=== PATIENT | male | born 1945 | race Caucasian/White ===

== ENCOUNTER 2016-12-13 14:38 | Observation (INO) | payer OTHER, BC ==
[~2016-12-13] VITALS: Ht 175.3 cm; Wt 64.2 kg
[~2016-12-13 14:38] MED LIST: CALC600T34 PO; FEXO180 PO; FISH1000 PO; PANC5000 PO; PLAV75TA PO; PROT40TA PO; Q 10 PO; RANI150T PO; TAB-TAB PO
[2016-12-13 14:40] VITALS: BP 156/69; PULSE 67; RESP 15; TEMP 97.3; O2SAT 99
[2016-12-13 15:25] LABS: AUTOMATED NEUTROPHIL # 4.3 TH/MM3 (1.8-7.7); BASOPHIL % 0.4 % (0.0-2.0); EOSINOPHIL # 0.1 TH/MM3 (0-0.4); EOSINOPHIL % 1.3 % (0.0-4.0); HEMATOCRIT 32.1 % (39.0-51.0); HEMO FLAGS DIFF FINAL; LYMPH % 22.8 % (9.0-44.0); LYMPHOCYTE # 1.5 TH/MM3 (1.0-4.8); MEAN CELL VOLUME 93.1 FL (80.0-100.0); MEAN CORPUSCULAR HEMOGLOBIN 33.3 PG (27.0-34.0); MEAN CORPUSCULAR HGB CONC 35.7 % (32.0-36.0); MONO % 11.1 % (0.0-8.0); NEUT % 64.4 % (16.0-70.0); PLATELET COUNT 171 TH/MM3 (150-450); RED BLOOD COUNT 3.44 MIL/MM3 (4.50-5.90); RED CELL DISTRIBUTION WIDTH 12.6 % (11.6-17.2); WHITE BLOOD COUNT 6.6 TH/MM3 (4.0-11.0)
[2016-12-13] MEDS ORDERED: PANTOPRAZOLE SODIUM 40 MG VIAL IV PUSH ONE (15:30)
--- NOTE | 2016-12-13 15:37 | PD ---
HPI Chief Complaint: GI Complaint Time Seen by Provider: 15:20 Travel History International Travel<30 days: No Contact w/Intl Traveler<30days: No Traveled to known affect area: No History of Present Illness HPI 71-year-old male complains of rectal bleeding. Patient noticed maroon and black stool since yesterday. Patient has history of CAD status post stents placement on Plavix and aspirin daily. Patient states that he has some abdominal bloating with rectal bleeding since yesterday. Patient denies any headache. Patient denies any chest pain. Patient states that he has mild intermittent shortness of breath. Patient denies any fever chills. Patient denies any nausea vomiting diarrhea. Patient states that he has history of GI bleed last year. Patient has been a patient of Dr. Roa, superintendent maintenance airports and Dr. Chanel, Sheet Metal Technician. Patient has history of CAD status post stents placement 6, GERD, dyslipidemia, hypertension. PFSH Past Medical History Anemia: Yes Arthritis: No Asthma: No Blood Disorders: No Anxiety: No Depression: No Heart Rhythm Problems: No Cancer: No Cardiac Catheterization: Yes Cardiovascular Problems: Yes High Cholesterol: Yes Chemotherapy: No Chest Pain: Yes Congestive Heart Failure: No COPD: No Cerebrovascular Accident: No Diminished Hearing: No GERD: No Genitourinary: No Headaches: No Hiatal Hernia: No Hypertension: Yes Inguinal Hernia: Yes Medical other: No (vitalago/ pale) Musculoskeletal: No Neurologic: No Psychiatric: No Respiratory: No Myocardial Infarction: No Radiation Therapy: No Seizures: No Sleep Apnea: Yes (non compliant cpap) Ulcer: No Influenza Vaccination: Yes Past Surgical History Abdominal Surgery: No (GALLBLADDER REMOVAL) AICD: No Cardiac Surgery: Yes (2 STENTS PLACED IN 2005) Cholecystectomy: Yes (FEBRUARY 2007) Coronary Stent: Yes (6) Ear Surgery: No Endocrine Surgery: No Eye Surgery: Yes (cataracts) Genitourinary Surgery: No Gynecologic Surgery: No Joint Replacement: No Oral Surgery: No Pacemaker: No Thoracic Surgery: No Social History Alcohol Use: No Tobacco Use: No Substance Use: No Allergies-Medications (Allergen,Severity, Reaction): Coded Allergies: Aspirin (Verified Allergy, Severe, CHEST PAIN, 12/13/16) Zocor (Verified Allergy, Severe, ELEVATED LFT'S, 12/13/16) ALL STATINS Chocolate (Verified Allergy, Mild, HIVES, 12/13/16) Lactose (Verified Allergy, Mild, ABD CRAMPING, 12/13/16) Uncoded Allergies: ginko (Allergy, Mild, 03/13/06) Reported Meds & Prescriptions Reported Meds & Active Scripts Active Reported Probiotic (Lactobacillus Acidophilus) 1 Cap Cap 1 Cap PO DAILY Ranexa ER 12 HR (Ranolazine) 500 Mg Tab 500 Mg PO DAILY Nitrostat SL (Nitroglycerin) 0.4 Mg Subl 0.4 Mg SL DIRECTED PRN 1 tablet under the tongue as needed for chest pain. Repeat every 5 minutes for a total of 3 DOSES or call 911 if NO relief. Atorvastatin (Atorvastatin Calcium) 80 Mg Tab 80 Mg PO HS Ranitidine (Ranitidine HCl) 150 Mg Cap 150 Mg PO BID Creon (Amylase/Lipase/Protease) 12,000-38,000-60,000 Units Cap 1 Cap PO TIDPC Multiple Vitamin 1 Tab 1 Tab PO DAILY Plavix (Clopidogrel Bisulfate) 75 Mg Tab 75 Mg PO DAILY Calcium 600 with Vitamin D (Calcium Carbonate-Cholecalciferol) 600-400 mg-Unit Tab 1 Tab PO DAILY Review of Systems General / Constitutional: No: Fever Eyes: No: Visual changes HENT: No: Headaches Cardiovascular: No: Chest Pain or Discomfort Respiratory: No: Shortness of Breath Gastrointestinal: Positive: Hematochezia, No: Abdominal Pain Genitourinary: No: Dysuria Musculoskeletal: No: Pain Skin: No Rash Neurologic: No: Weakness Psychiatric: No: Depression Endocrine: No: Polydipsia Hematologic/Lymphatic: No: Easy Bruising Physical Exam Narrative GENERAL: Well-nourished, well-developed patient. SKIN: Warm and dry. HEAD: Normocephalic. EYES: No scleral icterus. No injection or drainage. NECK: Supple, trachea midline. No JVD or lymphadenopathy. CARDIOVASCULAR: Regular rate and rhythm without murmurs, gallops, or rubs. RESPIRATORY: Breath sounds equal bilaterally. No accessory muscle use. GASTROINTESTINAL: Abdomen soft, non-tender, nondistended. Rectal exam patient has maroon-looking stool per rectum. No active bleeding per rectum. Hemoccult positive. MUSCULOSKELETAL: No cyanosis, or edema. BACK: Nontender without obvious deformity. No CVA tenderness. No large exam normal. Data Data Last Documented VS Vital Signs Date Time Temp Pulse Resp B/P Pulse Ox O2 Delivery O2 Flow Rate FiO2 12/13/16 14:40 97.3 67 15 156/69 99 Orders Complete Blood Count With Diff (12/13/16 14:44) Comprehensive Metabolic Panel (12/13/16 14:44) Prothrombin Time / Inr (Pt) (12/13/16 14:44) Act Partial Throm Time (Ptt) (12/13/16 14:44) Type And Screen (12/13/16 14:44) Sodium Chlor 0.9% 1000 Ml Inj (Ns 1000 M (12/13/16 15:30) Pantoprazole Inj (Protonix Inj) (12/13/16 15:30) Labs Laboratory Tests Test 12/13/16 14:55 White Blood Count 6.6 TH/MM3 Red Blood Count 3.44 MIL/MM3 Hemoglobin 11.5 GM/DL Hematocrit 32.1 % Mean Corpuscular Volume 93.1 FL Mean Corpuscular Hemoglobin 33.3 PG Mean Corpuscular Hemoglobin 35.7 % Concent Red Cell Distribution Width 12.6 % Platelet Count 171 TH/MM3 Mean Platelet Volume 9.5 FL Neutrophils (%) (Auto) 64.4 % Lymphocytes (%) (Auto) 22.8 % Monocytes (%) (Auto) 11.1 % Eosinophils (%) (Auto) 1.3 % Basophils (%) (Auto) 0.4 % Neutrophils # (Auto) 4.3 TH/MM3 Lymphocytes # (Auto) 1.5 TH/MM3 Monocytes # (Auto) 0.7 TH/MM3 Eosinophils # (Auto) 0.1 TH/MM3 Basophils # (Auto) 0.0 TH/MM3 CBC Comment DIFF FINAL Differential Comment Prothrombin Time 11.2 SEC Prothromb Time International 1.0 RATIO Ratio Activated Partial 26.4 SEC Thromboplast Time Sodium Level 139 MEQ/L Potassium Level 3.9 MEQ/L Chloride Level 104 MEQ/L Carbon Dioxide Level 28.9 MEQ/L Anion Gap 6 MEQ/L Blood Urea Nitrogen 22 MG/DL Creatinine 1.07 MG/DL Estimat Glomerular Filtration 68 ML/MIN Rate Random Glucose 90 MG/DL Calcium Level 8.8 MG/DL Total Bilirubin 0.3 MG/DL Aspartate Amino Transf 35 U/L (AST/SGOT) Alanine Aminotransferase 38 U/L (ALT/SGPT) Alkaline Phosphatase 90 U/L Total Protein 6.7 GM/DL Albumin 3.5 GM/DL Blood Type O POSITIVE Antibody Screen NEGATIVE MDM Medical Decision Making Medical Screen Exam Complete: Yes Emergency Medical Condition: Yes Differential Diagnosis Differential diagnosis including upper versus lower GI bleed, diverticulosis, diverticulitis, AV malformation, hemorrhoidal bleed, coagulopathy. Narrative Course 71-year-old male with rectal bleeding. Patient has history of CAD status post stent placement and is on Plavix and aspirin. Normal saline solution 100 cc an hour. Protonix 40 mg IV. Lobito Coleman MD Dec 13, 2016 15:37
[2016-12-13 15:38] LABS: APTT (PATIENT) 26.4 SEC (24.3-30.1); PROTHROMBIN TIME - PATIENT 11.2 SEC (9.8-11.6)
[2016-12-13] MEDS ORDERED: NITR0.4S SL (15:38)
[2016-12-13] MEDS ORDERED: MULTTAB67 PO (15:38)
[2016-12-13] MEDS ORDERED: RANI150C PO (15:38)
[2016-12-13] MEDS ORDERED: ATOR1TAB18 PO (15:38)
[2016-12-13] MEDS ORDERED: RANO500 PO (15:38)
[2016-12-13] MEDS ORDERED: CREON12 PO (15:38)
[2016-12-13] MEDS ORDERED: CALC1TAB87 PO (15:38)
[2016-12-13] MEDS ORDERED: PLAV75TA29 PO (15:38)
[2016-12-13] MEDS ORDERED: LACTCAP8 PO (15:39)
[2016-12-13 15:49] LABS: ALT (GPT) 38 U/L (12-78); ANION GAP 6 MEQ/L (5-15); AST (GOT) 35 U/L (15-37); BICARBONATE 28.9 MEQ/L (21.0-32.0); BLOOD UREA NITROGEN 22 MG/DL (7-18); CHLORIDE 104 MEQ/L (98-107); GLOMERULAR FILTRATION RATE 68 ML/MIN (>89); POTASSIUM 3.9 MEQ/L (3.5-5.1); SODIUM (NA) 139 MEQ/L (136-145)
[2016-12-13 15:51] LABS: ALKALINE PHOSPHATASE 90 U/L (45-117); TOTAL BILIRUBIN ADULT 0.3 MG/DL (0.2-1.0)
[2016-12-13] MEDS: SODIUM CHLOR 0.9% 1000 ML INJ 1,000 ML IV SCH ×3 (15:55→22:46)
[2016-12-13] MEDS ORDERED: ACETAMINOPHEN 325 MG TAB PO PRN (16:45)
[2016-12-13] MEDS ORDERED: MORPHINE SULFATE 4 MG/ML INJ IV PRN (16:45)
[2016-12-13] MEDS ORDERED: ONDANSETRON HCL 4 MG/2 ML VIAL IV PRN (16:45)
[2016-12-13] MEDS ORDERED: ACETAMINOPHEN/HYDROcodone 325 MG/5 MG TAB PO PRN (16:45)
[2016-12-13] MEDS ORDERED: SODIUM CHLORIDE 0.9% FLUSH 5 ML FLUSH IV PRN (16:45)
[2016-12-13] MEDS ORDERED: NALOXONE HCL 0.4 MG/ML AMP IV PRN (16:45)
--- NOTE | 2016-12-13 17:35 | HHI.HP ---
HPI Service [facility]ists Primary Care Physician [facility] Admission Diagnosis GI bleed. Diagnoses: Chief Complaint: Rectal bleeding ZEPEDA Fatigue Travel History International Travel<30 Days: No Contact w/Intl Traveler <30 Da: No Traveled to Known Affected Are: No History of Present Illness 71 yo male with PMHX of anemia, CAD s/p previous PCI/with 6 stent implantations on Plavix and ASA, HLD, Vitiligo, bradycardia, FLAVIA CPAP noncompliant, GERD, hemorrhoids and h/o previous GIB one year ago requiring a transfusion of 2u PRBCs presents to [facility] with complaints of rectal bleeding with associated fatigue x 2 days. He reports some exertional dyspnea that has been ongoing since his last cardiac stent placement in September. Patient has witnessed maroon and black stools as well as bright red blood. At the time of his GIB last year, patient underwent a colonoscopy by Dr. Roa which was negative per patient report and he was told to have repeat colonoscopy in 10 yrs. The patient states the bleeding is similar to what he experienced one year ago leading to his previous admission and transfusion. Patient denies any complaints of chest pain or abdominal pain. He does admit to some diarrhea with the bleeding but denies any fever or chills. In the ED, patients hemoglobin is 11.5 and hematocrit 32.1. Rectal exam done in ED revealed maroon looking stool per rectum and Hemoccult positive. ED physician Dr. Coleman discussed with patients efficiency miner Dr. Chanel who has stated patient is to remain on his home medications of Plavix and Aspirin at this time. Review of Systems Constitutional: COMPLAINS OF: Fatigue, DENIES: Fever, Chills Endocrine: DENIES: Polydipsia, Polyuria, Polyphagia Eyes: DENIES: Eye pain, Double Vision Ears, nose, mouth, throat: DENIES: Throat pain, Ear Pain, Odynophagia Respiratory: COMPLAINS OF: Shortness of breath (with exertion since his last cath/stent placement in September), DENIES: Cough, Wheezing Cardiovascular: DENIES: Chest pain, Syncope, PND Gastrointestinal: COMPLAINS OF: Black stools (as stated in HPI), Bloody stools , DENIES: Abdominal pain, Nausea, Vomiting Genitourinary: DENIES: Hematuria, Dysuria Musculoskeletal: DENIES: Joint pain, Muscle aches Integumentary: DENIES: Pruritus, Rash Hematologic/lymphatic: DENIES: Lymphadenopathy Neurologic: DENIES: Headache, Localized weakness, Paresthesias Psychiatric: COMPLAINS OF: Confusion, DENIES: Anxiety, Depression, Suicidal Ideation Past Family Social History Past Medical History CAD s/p stent implantation x 6 Vitiligo hx of GIB requiring blood transfusion HLD GERD Hemorrhoids Poor digestion with wt loss, placed on pancreatic enzymes Bradycardia FLAVIA CPAP noncompliant Anemia Past Surgical History Cholecystectomy PCI/stent implantation Cataract surgery Bilateral inguinal hernia repairs with mesh Reported Medications Probiotic (Lactobacillus Acidophilus) 1 Cap Cap 1 Cap PO DAILY Ranexa ER 12 HR (Ranolazine) 500 Mg Tab 500 Mg PO DAILY Nitrostat SL (Nitroglycerin) 0.4 Mg Subl 0.4 Mg SL DIRECTED PRN 1 tablet under the tongue as needed for chest pain. Repeat every 5 minutes for a total of 3 DOSES or call 911 if NO relief. Atorvastatin (Atorvastatin Calcium) 80 Mg Tab 80 Mg PO HS Ranitidine (Ranitidine HCl) 150 Mg Cap 150 Mg PO BID Creon (Amylase/Lipase/Protease) 12,000-38,000-60,000 Units Cap 1 Cap PO TIDPC Multiple Vitamin 1 Tab 1 Tab PO DAILY Plavix (Clopidogrel Bisulfate) 75 Mg Tab 75 Mg PO DAILY Calcium 600 with Vitamin D (Calcium Carbonate-Cholecalciferol) 600-400 mg-Unit Tab 1 Tab PO DAILY Allergies: Coded Allergies: Aspirin (Verified Allergy, Severe, CHEST PAIN, 12/13/16) Zocor (Verified Allergy, Severe, ELEVATED LFT'S, 12/13/16) ALL STATINS Chocolate (Verified Allergy, Mild, HIVES, 12/13/16) Lactose (Verified Allergy, Mild, ABD CRAMPING, 12/13/16) Uncoded Allergies: ginko (Allergy, Mild, 03/13/06) Family History CAD, both parents, father age 53 Mother, breast cancer, age 82 Denies any FMHX of colon cancer Social History Patient denies any tobacco, ETOH or illicit drug use (+)second hand smoke exposure Physical Exam Vital Signs Vital Signs Date Time Temp Pulse Resp B/P Pulse Ox O2 Delivery O2 Flow Rate FiO2 12/13/16 14:40 97.3 67 15 156/69 99 Physical Exam GENERAL: This is a well-nourished, well-developed patient, in no apparent distress. Very pale skin. SKIN: No rashes, ecchymoses or lesions. Cool and dry. HEAD: Atraumatic. Normocephalic. No temporal or scalp tenderness. EYES: Pupils equal round and reactive. Extraocular motions intact. No scleral icterus. No injection or drainage. Slightly pale conjunctiva noted. ENT: Nose without bleeding, purulent drainage or septal hematoma. Throat without erythema, tonsillar hypertrophy or exudate. Uvula midline. Airway patent. NECK: Trachea midline. No lymphadenopathy. Supple, nontender, no meningeal signs. CARDIOVASCULAR: Regular rate and rhythm without murmurs or rubs. Possible S4 heart sound appreciated. RESPIRATORY: Clear to auscultation. Breath sounds equal bilaterally. No wheezes , rales, or rhonchi. GASTROINTESTINAL: Abdomen soft, non-tender, nondistended. No hepato-splenomegaly , or palpable masses. No guarding. MUSCULOSKELETAL: Extremities without clubbing, cyanosis, or edema. No joint tenderness, effusion, or edema noted. No calf tenderness. NEUROLOGICAL: Awake and alert. Cranial nerves II through XII intact. Motor and sensory grossly within normal limits. Five out of 5 muscle strength in all muscle groups. Normal speech. Laboratory Laboratory Tests Test 12/13/16 14:55 White Blood Count 6.6 Red Blood Count 3.44 Hemoglobin 11.5 Hematocrit 32.1 Mean Corpuscular Volume 93.1 Mean Corpuscular Hemoglobin 33.3 Mean Corpuscular Hemoglobin 35.7 Concent Red Cell Distribution Width 12.6 Platelet Count 171 Mean Platelet Volume 9.5 Neutrophils (%) (Auto) 64.4 Lymphocytes (%) (Auto) 22.8 Monocytes (%) (Auto) 11.1 Eosinophils (%) (Auto) 1.3 Basophils (%) (Auto) 0.4 Neutrophils # (Auto) 4.3 Lymphocytes # (Auto) 1.5 Monocytes # (Auto) 0.7 Eosinophils # (Auto) 0.1 Basophils # (Auto) 0.0 CBC Comment DIFF FINAL Differential Comment Prothrombin Time 11.2 Prothromb Time International 1.0 Ratio Activated Partial 26.4 Thromboplast Time Sodium Level 139 Potassium Level 3.9 Chloride Level 104 Carbon Dioxide Level 28.9 Anion Gap 6 Blood Urea Nitrogen 22 Creatinine 1.07 Estimat Glomerular Filtration 68 Rate Random Glucose 90 Calcium Level 8.8 Total Bilirubin 0.3 Aspartate Amino Transf 35 (AST/SGOT) Alanine Aminotransferase 38 (ALT/SGPT) Alkaline Phosphatase 90 Total Protein 6.7 Albumin 3.5 Blood Type O POSITIVE Antibody Screen NEGATIVE Result Diagram: 12/13/16145412/13/161454 Assessment and Plan Assessment and Plan 71 yo male with PMHX of anemia, CAD s/p previous PCI/with 6 stent implantations on Plavix and ASA, HLD, Vitiligo, bradycardia, FLAVIA CPAP noncompliant, GERD, hemorrhoids and h/o previous GIB requiring a transfusion of 2u PRBCs admitted to [facility] with complaints of rectal bleeding with associated fatigue x 2 days. GIB - suspected lower GIB, -H/O hemorrhoids - Admit to inpatient on telemetry - patient is hemodynamically stable - Consult GI - Dr. Roa who is known to the patient - serial H/H q 6hs for close monitoring of worsening anemia - IV PPI BID - NPO - IVF - Fall precautions CAD with history of previous PCI/stents - ED physician Dr. Coleman discussed with patients efficiency miner Dr. Chanel who indicated patient is to remain on Plavix and Aspirin at this time - telemetry - c/w Plavix and ASA daily - c/w Ranexa HLD - c/w Atorvastatin daily DVT prophylaxis - SCDs/MARIBELL hooper Written by Doreen Garcia, acting as scribe for Dr. Nick on 12/13/16 at 17:28. Physician Certification 2 Midnight Certification Type: Admission for Inpatient Services Order for Inpatient Services The services are ordered in accordance with Medicare regulations or non- Medicare payer requirements, as applicable. In the case of services not specified as inpatient-only, they are appropriately provided as inpatient services in accordance with the 2-midnight benchmark. Estimated LOS (days): 3 days is the estimated time the patient will need to remain in the hospital, assuming treatment plan goals are met and no additional complications. Post-Hospital Plan: Home Doreen Garcia PA-C Dec 13, 2016 17:35 Ori Nick MD Dec 13, 2016 19:21
[2016-12-13] MEDS: LIPASE/PROTEASE/AMYLASE (12,000/38,000/60,000) CAP PO SCH (18:30)
[2016-12-13] MEDS: SODIUM CHLORIDE 0.9% FLUSH 5 ML FLUSH IV SCH (19:51)
[2016-12-13] MEDS: ATORVASTATIN 80 MG TAB PO SCH (19:54)
[2016-12-13 20:00] VITALS: BP 115/82; PULSE 59; RESP 18; TEMP 97.6; O2SAT 96
[2016-12-13 20:20] LABS: HEMATOCRIT 28.2 % (39.0-51.0); REVIEW FLAG FINAL
[2016-12-13] MEDS: PANTOPRAZOLE SODIUM 40 MG VIAL IV SCH (21:38)
[2016-12-13 23:02] VITALS: PULSE 60
[2016-12-14 00:40] VITALS: BP 118/78; PULSE 62; RESP 18; TEMP 97.4; O2SAT 96
[2016-12-14] MEDS: SODIUM CHLOR 0.9% 1000 ML INJ 1,000 ML IV SCH ×6 (01:15→22:52)
[2016-12-14 03:19] LABS: AUTOMATED NEUTROPHIL # 2.3 TH/MM3 (1.8-7.7); BASOPHIL % 0.4 % (0.0-2.0); EOSINOPHIL # 0.1 TH/MM3 (0-0.4); EOSINOPHIL % 2.1 % (0.0-4.0); HEMO FLAGS DIFF FINAL; LYMPH % 35.3 % (9.0-44.0); LYMPHOCYTE # 1.7 TH/MM3 (1.0-4.8); MEAN CELL VOLUME 92.3 FL (80.0-100.0); MEAN CORPUSCULAR HEMOGLOBIN 32.5 PG (27.0-34.0); MEAN CORPUSCULAR HGB CONC 35.2 % (32.0-36.0); MONO % 13.7 % (0.0-8.0); NEUT % 48.5 % (16.0-70.0); PLATELET COUNT 156 TH/MM3 (150-450); RED BLOOD COUNT 3.15 MIL/MM3 (4.50-5.90); RED CELL DISTRIBUTION WIDTH 12.8 % (11.6-17.2); WHITE BLOOD COUNT 4.7 TH/MM3 (4.0-11.0)
[2016-12-14 03:41] LABS: BICARBONATE 25.6 MEQ/L (21.0-32.0); POTASSIUM 3.6 MEQ/L (3.5-5.1)
[2016-12-14 04:00] VITALS: BP 108/58; PULSE 53; RESP 18; TEMP 97.2; O2SAT 95
[2016-12-14 08:20] VITALS: BP 125/60; PULSE 56; RESP 18; TEMP 96.9; O2SAT 97
[2016-12-14] MEDS ORDERED: CLOPIDOGREL 75 MG TAB PO SCH (09:00)
[2016-12-14] MEDS ORDERED: ASPIRIN EC 81 MG TABEC PO SCH (09:00)
[2016-12-14] MEDS ORDERED: LACTOBACILLUS ACIDOPHILUS TAB PO SCH (09:00)
[2016-12-14] MEDS ORDERED: MULTIVITAMIN TAB PO SCH (09:00)
[2016-12-14] MEDS: SODIUM CHLORIDE 0.9% FLUSH 5 ML FLUSH IV SCH ×2 (09:00→21:00)
[2016-12-14] MEDS ORDERED: RANOLAZINE 500 MG EXTENDED RELEASE TAB PO SCH (09:00)
[2016-12-14] MEDS: LIPASE/PROTEASE/AMYLASE (12,000/38,000/60,000) CAP PO SCH ×3 (09:30→17:19)
[2016-12-14] MEDS: PANTOPRAZOLE SODIUM 40 MG VIAL IV SCH ×2 (09:39→21:01)
[2016-12-14 10:06] LABS: HEMATOCRIT 30.6 % (39.0-51.0); REVIEW FLAG FINAL
[2016-12-14 12:00] VITALS: BP 113/62; PULSE 56; RESP 20; TEMP 96.9; O2SAT 99
--- NOTE | 2016-12-14 13:24 | PD.CONS ---
HPI History of Present Illness This is a 71 year old gentleman with rectal bleeding. In the last 3 days he has had three bowel movements in which he saw dark red blood in the stool. This started on Monday and the initial bowel movement had dark maroon blood in it. He has since had 2 more episodes, each with decreasing amount of blood. Denies n/v, abdominal pain, recent constipation, weight loss, diarrhea. He does have history of weight loss with diarrhea and was started on pancreatic enzymes a year ago. He reports since taking the pancreatic enzymes his weight has gone up and his diarrhea improved. He said he has had bloody stool about a year ago for which he saw Dr. Roa who did EGD and colonoscopy 09/08/15. Findings from EGD consisted of mild gastritis, biopsy gastric mucosa with reactive gastropathy. Findings from colonoscopy were mild diverticulosis and medium internal hemorrhoids. 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 At this time he also had his gall bladder removed. He is s/p stent placement and takes plavix, which he last had on Monday. He also has stopped taking his fish o [place] and ASA. He has 2 sisters with stomach cancer and his mother had breast cancer. When he was a child he had a lymph node removed for cancer. PFSH Past Medical History CAD s/p stent implantation x 6 Vitiligo hx of GIB requiring blood transfusion HLD GERD Hemorrhoids Poor digestion with wt loss, placed on pancreatic enzymes Bradycardia FLAVIA CPAP noncompliant Anemia Past Surgical History Cholecystectomy PCI/stent implantation Cataract surgery Bilateral inguinal hernia repairs with mesh Coded Allergies: Aspirin (Verified Allergy, Severe, CHEST PAIN, 12/13/16) Zocor (Verified Allergy, Severe, ELEVATED LFT'S, 12/13/16) ALL STATINS Chocolate (Verified Allergy, Mild, HIVES, 12/13/16) Lactose (Verified Allergy, Mild, ABD CRAMPING, 12/13/16) Uncoded Allergies: ginko (Allergy, Mild, 03/13/06) Family History CAD, both parents, father age 53 Mother, breast cancer, age 82 Denies any FMHX of colon cancer Social History Patient denies any tobacco, ETOH or illicit drug use (+)second hand smoke exposure GI Exam Vitals I&O Vital Signs Date Time Temp Pulse Resp B/P Pulse Ox O2 Delivery O2 Flow Rate FiO2 12/14/16 08:20 96.9 56 18 125/60 97 12/14/16 04:00 97.2 53 18 108/58 95 12/14/16 00:40 97.4 62 18 118/78 96 12/13/16 23:02 60 12/13/16 20:00 97.6 59 18 115/82 96 12/13/16 14:40 97.3 67 15 156/69 99 I/O 12/13/16 12/13/16 12/13/16 12/14/16 12/14/16 12/14/16 07:00 15:00 23:00 07:00 15:00 23:00 Intake Total 1536 ml Output Total 400 ml 850 ml 1150 ml Balance -400 ml -850 ml 386 ml Intake Oral 0 ml IV Total 1536 ml Output Urine Total 400 ml 850 ml 1150 ml # Bowel Movements 1 Laboratory Test 12/13/16 12/13/16 12/14/16 12/14/16 14:55 19:56 03:08 09:40 White Blood Count 6.6 TH/MM3 4.7 TH/MM3 Red Blood Count 3.44 MIL/MM3 3.15 MIL/MM3 Hemoglobin 11.5 GM/DL 9.9 GM/DL 10.2 GM/DL 10.4 GM/DL Hematocrit 32.1 % 28.2 % 29.0 % 30.6 % Mean Corpuscular Volume 93.1 FL 92.3 FL Mean Corpuscular Hemoglobin 33.3 PG 32.5 PG Mean Corpuscular Hemoglobin 35.7 % 35.2 % Concent Red Cell Distribution Width 12.6 % 12.8 % Platelet Count 171 TH/MM3 156 TH/MM3 Mean Platelet Volume 9.5 FL 9.1 FL Neutrophils (%) (Auto) 64.4 % 48.5 % Lymphocytes (%) (Auto) 22.8 % 35.3 % Monocytes (%) (Auto) 11.1 % 13.7 % Eosinophils (%) (Auto) 1.3 % 2.1 % Basophils (%) (Auto) 0.4 % 0.4 % Neutrophils # (Auto) 4.3 TH/MM3 2.3 TH/MM3 Lymphocytes # (Auto) 1.5 TH/MM3 1.7 TH/MM3 Monocytes # (Auto) 0.7 TH/MM3 0.6 TH/MM3 Eosinophils # (Auto) 0.1 TH/MM3 0.1 TH/MM3 Basophils # (Auto) 0.0 TH/MM3 0.0 TH/MM3 CBC Comment DIFF FINAL DIFF FINAL Differential Comment Prothrombin Time 11.2 SEC Prothromb Time International 1.0 RATIO Ratio Activated Partial 26.4 SEC Thromboplast Time Sodium Level 139 MEQ/L 143 MEQ/L Potassium Level 3.9 MEQ/L 3.6 MEQ/L Chloride Level 104 MEQ/L 111 MEQ/L Carbon Dioxide Level 28.9 MEQ/L 25.6 MEQ/L Anion Gap 6 MEQ/L 6 MEQ/L Blood Urea Nitrogen 22 MG/DL 17 MG/DL Creatinine 1.07 MG/DL 1.00 MG/DL Estimat Glomerular Filtration 68 ML/MIN 74 ML/MIN Rate Random Glucose 90 MG/DL 84 MG/DL Calcium Level 8.8 MG/DL 8.3 MG/DL Total Bilirubin 0.3 MG/DL Aspartate Amino Transf 35 U/L (AST/SGOT) Alanine Aminotransferase 38 U/L (ALT/SGPT) Alkaline Phosphatase 90 U/L Total Protein 6.7 GM/DL Albumin 3.5 GM/DL Blood Type O POSITIVE Antibody Screen NEGATIVE Physical Examination HEENT: normocephalic; atraumatic; no jaundice CHEST: CTA CARDIAC: RRR ABDOMEN: Soft, nondistended, nontender; no hepatosplenomegaly; bowel sounds are present in all four quadrants. EXTREMITIES: No clubbing, cyanosis, or edema. SKIN: hypopigmentation; no rash; no jaundice. ORAL COMMUNICATION INSTRUCTOR: No focal deficits; alert and oriented times three. Assessment and Plan Plan ASSESSMENT - Hematochezia - In the last 3 days three bowel movements dark red blood in the stool and similar episode 1 year ago, colonoscopy/EGD 09/08/15 indicated gastritis, mild diverticulosis and internal hemorrhoids. - Anemia - acute blood loss, stable HH 10.4/30.6 - CAD s/p stent placement and takes plavix, which he last had on Monday - Hx Weight loss & diarrhea/suspected pancreatic insufficiency, improved with pancreatic enzyme supplementation - Hx Elevated LFTs, 2006 liver bx indicated chrnoic hepatitis, mild perioportal fibrosis, mildly increased iron deposition PLAN - EGD/colonoscopy in am - obtain consents - continue to hold plavix - clear liquids - NPO after midnight - golytely prep - Monitor HH - transfuse as necessary - PPI - supportive care - Pt seen by Dr. Amos and myself and this note is written on his behalf Jessica Turner Dec 14, 2016 13:24
[2016-12-14 14:29] LABS: HEMATOCRIT 28.1 % (39.0-51.0); REVIEW FLAG FINAL
--- NOTE | 2016-12-14 15:17 | HHI.PR ---
Subjective Remarks Patient resting in bed comfortably no abdominal pain nausea or vomiting, he did not move bowels today Looks like Plavix has been held so I discussed with GI UTILIZATION SPECIALIST he and explained that cardiology does not want this to be on hold so we'll resume it is okay with them Plan for GI scope tomorrow Objective Vitals Vital Signs Date Time Temp Pulse Resp B/P Pulse Ox O2 Delivery O2 Flow Rate FiO2 12/14/16 12:00 96.9 56 20 113/62 99 12/14/16 08:20 96.9 56 18 125/60 97 12/14/16 04:00 97.2 53 18 108/58 95 12/14/16 00:40 97.4 62 18 118/78 96 12/13/16 23:02 60 12/13/16 20:00 97.6 59 18 115/82 96 I/O 12/13/16 12/13/16 12/13/16 12/14/16 12/14/16 12/14/16 07:00 15:00 23:00 07:00 15:00 23:00 Intake Total 1536 ml Output Total 400 ml 850 ml 1150 ml Balance -400 ml -850 ml 386 ml Intake Oral 0 ml IV Total 1536 ml Output Urine Total 400 ml 850 ml 1150 ml # Bowel Movements 1 Result Diagram: 12/14/16 1403 12/14/16 0308 Objective Remarks GENERAL: This is a well-nourished, well-developed patient, in no apparent distress. SKIN: No rashes, warm and dry HEAD: Atraumatic. Normocephalic. EYES: Pupils equal round and reactive. Extraocular motions intact. No scleral icterus. ENT: Nose without bleeding, or drainage, Airway patent. NECK: Trachea midline. Supple CARDIOVASCULAR: Regular rate and rhythm without murmurs, gallops, or rubs. RESPIRATORY: Fair air entry bilaterally. No wheezes, rales, or rhonchi. GASTROINTESTINAL: Abdomen soft, non-tender, nondistended. Positive bowel sounds MUSCULOSKELETAL: Extremities without clubbing, cyanosis, or edema. Pedal pulses appreciated NEUROLOGICAL: Awake and alert. Moves all extremity. Normal speech.no focal neurological deficit A/P Assessment and Plan 71 yo male with PMHX of anemia, CAD s/p previous PCI/with 6 stent implantations on Plavix and ASA, HLD, Vitiligo, bradycardia, FLAVIA CPAP noncompliant, GERD, hemorrhoids and h/o previous GIB requiring a transfusion of 2u PRBCs admitted to [facility] with complaints of rectal bleeding with associated fatigue x 2 days. GIB - suspected lower GIB, -H/O hemorrhoids - Admit to inpatient on telemetry - patient is hemodynamically stable - Appreciate GI consult plan for EGD and colonoscopy tomorrow - serial H/H q 6hs, stable - IV PPI BID - NPO - IVF - Fall precautions CAD with history of previous PCI/stents - ED physician Dr. Coleman discussed with patients senior search marketing analyst Dr. Chanel who indicated patient is to remain on Plavix and Aspirin at this time - telemetry - c/w Plavix and ASA daily - c/w Ranexa HLD - c/w Atorvastatin daily DVT prophylaxis - SCDs/Ori St MD Dec 14, 2016 15:17
[2016-12-14 16:00] VITALS: BP 112/60; PULSE 52; RESP 20; TEMP 95.8; O2SAT 97
[2016-12-14] MEDS ORDERED: PEG (High)/E-LYTE SOLN 4000 ML BTL PO ONE (16:00)
[2016-12-14 20:25] VITALS: BP 125/58; PULSE 52; RESP 18; TEMP 97.5; O2SAT 100
[2016-12-14] MEDS: ATORVASTATIN 80 MG TAB PO SCH (21:00)
[2016-12-14 21:15] LABS: HEMATOCRIT 28.6 % (39.0-51.0); REVIEW FLAG FINAL
[2016-12-15 00:17] VITALS: BP 115/55; PULSE 60; RESP 20; TEMP 97.2; O2SAT 98
[2016-12-15 04:22] VITALS: BP 102/55; PULSE 64; RESP 18; TEMP 96.3; O2SAT 96
[2016-12-15] MEDS: SODIUM CHLOR 0.9% 1000 ML INJ 1,000 ML IV SCH (04:38)
[2016-12-15] MEDS ORDERED: LACTATED RINGER'S 1000 ML IV SCH (05:45)
[2016-12-15 08:32] VITALS: BP_SYST 63; PULSE 107; RESP 18; TEMP 96.6; O2SAT 99
[2016-12-15] MEDS: LIPASE/PROTEASE/AMYLASE (12,000/38,000/60,000) CAP PO SCH (09:30)
[2016-12-15 09:38] LABS: AUTOMATED NEUTROPHIL # 2.3 TH/MM3 (1.8-7.7); BASOPHIL % 0.3 % (0.0-2.0); EOSINOPHIL # 0.1 TH/MM3 (0-0.4); EOSINOPHIL % 1.7 % (0.0-4.0); HEMATOCRIT 30.1 % (39.0-51.0); HEMO FLAGS DIFF FINAL; LYMPH % 26.9 % (9.0-44.0); MEAN CELL VOLUME 93.1 FL (80.0-100.0); MEAN CORPUSCULAR HEMOGLOBIN 32.9 PG (27.0-34.0); MEAN CORPUSCULAR HGB CONC 35.4 % (32.0-36.0); MONO % 11.9 % (0.0-8.0); NEUT % 59.2 % (16.0-70.0); PLATELET COUNT 146 TH/MM3 (150-450); RED BLOOD COUNT 3.24 MIL/MM3 (4.50-5.90); RED CELL DISTRIBUTION WIDTH 12.7 % (11.6-17.2); WHITE BLOOD COUNT 3.9 TH/MM3 (4.0-11.0)
[2016-12-15 11:30] VITALS: BP 129/70; PULSE 63; RESP 18; TEMP 96.8; O2SAT 100
[2016-12-15] MEDS ORDERED: PROPOFOL 200 MG/20 ML AMP IV ONE (13:16)
--- NOTE | 2016-12-15 13:52 | HHI.GIFU ---
Subjective Remarks doing well today, tolerated prep. no sign of active bleed Objective Vitals I&O Vital Signs Date Time Temp Pulse Resp B/P Pulse Ox O2 Delivery O2 Flow Rate FiO2 12/15/16 11:30 96.8 63 18 129/70 100 12/15/16 08:32 96.6 107 18 63/ 99 12/15/16 04:22 96.3 64 18 102/55 96 12/15/16 00:17 97.2 60 20 115/55 98 12/14/16 20:25 97.5 52 18 125/58 100 12/14/16 16:00 95.8 52 20 112/60 97 I/O 12/14/16 12/14/16 12/14/16 12/15/16 12/15/16 12/15/16 07:00 15:00 23:00 07:00 15:00 23:00 Intake Total 2204 ml 720 ml Output Total 850 ml 1150 ml Balance -850 ml 1054 ml 720 ml Intake Oral 0 ml 720 ml IV Total 2204 ml Output Urine Total 850 ml 1150 ml # Voids 2 3 # Bowel Movements 1 6 5 Laboratory Laboratory Tests Test 12/14/16 12/14/16 12/15/16 14:03 20:55 09:04 Hemoglobin 9.9 10.1 10.7 Hematocrit 28.1 28.6 30.1 White Blood Count 3.9 Red Blood Count 3.24 Mean Corpuscular Volume 93.1 Mean Corpuscular Hemoglobin 32.9 Mean Corpuscular Hemoglobin 35.4 Concent Red Cell Distribution Width 12.7 Platelet Count 146 Mean Platelet Volume 9.2 Neutrophils (%) (Auto) 59.2 Lymphocytes (%) (Auto) 26.9 Monocytes (%) (Auto) 11.9 Eosinophils (%) (Auto) 1.7 Basophils (%) (Auto) 0.3 Neutrophils # (Auto) 2.3 Lymphocytes # (Auto) 1.0 Monocytes # (Auto) 0.5 Eosinophils # (Auto) 0.1 Basophils # (Auto) 0.0 CBC Comment DIFF FINAL Differential Comment Physical Exam HEENT: Pupils round and reactive to light; normocephalic; atraumatic; no jaundice. Throat is clear. NECK: Neck is supple, no JVD, no lymphadenopathy. CHEST: Chest is clear to auscultation and percussion. CARDIAC: Regular rate and rhythm with no murmur gallop or rubs. ABDOMEN: Soft, nondistended, nontender; no hepatosplenomegaly; bowel sounds are present in all four quadrants. EXTREMITIES: No clubbing, cyanosis, or edema. SKIN: Normal; no rash; no jaundice. WAX SPECIALIST: No focal deficits; alert and oriented times three. Assessment and Plan Plan ASSESSMENT - Hematochezia - In the last 3 days three bowel movements dark red blood in the stool and similar episode 1 year ago, colonoscopy/EGD 09/08/15 indicated gastritis, mild diverticulosis and internal hemorrhoids. 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 PLAN - ok to feed patient - fiber in diet and avoid straining or constipation - continue plavix - cardiac diet - capsule endoscopy as outpatient - Monitor HH - transfuse as necessary - PPI - supportive care - ok to [place] home from GI stand aMrgo Amos MD Dec 15, 2016 13:51
[2016-12-15] MEDS ORDERED: PROT40TA PO (14:50)
[2016-12-15] MEDS ORDERED: ASPI81TA11 PO (14:50)
--- NOTE | 2016-12-15 14:52 | HHI.PR ---
Subjective Remarks Doing well, no abdominal pain nausea or vomiting or more hematochezia episodes Patient had EGD and colonoscopy showing reticulosis possible internal hemorrhoid , gastritis and duodenitis Cleared by GI for discharge Objective Vitals Vital Signs Date Time Temp Pulse Resp B/P Pulse Ox O2 Delivery O2 Flow Rate FiO2 12/15/16 14:02 65 16 102/55 98 12/15/16 13:50 71 16 110/65 97 12/15/16 13:37 97.7 73 18 100/65 98 Automatic Cuff 12/15/16 11:30 96.8 63 18 129/70 100 12/15/16 08:32 96.6 107 18 63/ 99 12/15/16 04:22 96.3 64 18 102/55 96 12/15/16 00:17 97.2 60 20 115/55 98 12/14/16 20:25 97.5 52 18 125/58 100 12/14/16 16:00 95.8 52 20 112/60 97 I/O 12/14/16 12/14/16 12/14/16 12/15/16 12/15/16 12/15/16 07:00 15:00 23:00 07:00 15:00 23:00 Intake Total 2204 ml 720 ml 100 ml Output Total 850 ml 1150 ml Balance -850 ml 1054 ml 720 ml 100 ml Intake Oral 0 ml 720 ml IV Total 2204 ml Other 100 ml Output Urine Total 850 ml 1150 ml # Voids 2 3 2 # Bowel Movements 1 6 5 Result Diagram: 12/15/16 0904 12/14/16 0308 Objective Remarks GENERAL: This is a well-nourished, well-developed patient, in no apparent distress. SKIN: No rashes, warm and dry HEAD: Atraumatic. Normocephalic. EYES: Pupils equal round and reactive. Extraocular motions intact. No scleral icterus. ENT: Nose without bleeding, or drainage, Airway patent. NECK: Trachea midline. Supple CARDIOVASCULAR: Regular rate and rhythm without murmurs, gallops, or rubs. RESPIRATORY: Fair air entry bilaterally. No wheezes, rales, or rhonchi. GASTROINTESTINAL: Abdomen soft, non-tender, nondistended. Positive bowel sounds MUSCULOSKELETAL: Extremities without clubbing, cyanosis, or edema. Pedal pulses appreciated NEUROLOGICAL: Awake and alert. Moves all extremity. Normal speech.no focal neurological deficit A/P Assessment and Plan 71 yo male with PMHX of anemia, CAD s/p previous PCI/with 6 stent implantations on Plavix and ASA, HLD, Vitiligo, bradycardia, FLAVIA CPAP noncompliant, GERD, hemorrhoids and h/o previous GIB requiring a transfusion of 2u PRBCs admitted to [facility] with complaints of rectal bleeding with associated fatigue x 2 days. GIB - suspected lower GIB, -H/O hemorrhoids - Admit to inpatient on telemetry - patient is hemodynamically stable - Appreciate GI consult status post EGD and colonoscopy 12/15>> mild gastritis and duodenitis, colonoscopy showed few diverticulosis, questionable small anal fissure and small internal hemorrhoids, no sign of bleed. - serial H/H q 6hs, stable - IV PPI BID - NPO - IVF - Fall precautions CAD with history of previous PCI/stents - ED physician Dr. Coleman discussed with patients dumper mold cleaner Dr. Chanel who indicated patient is to remain on Plavix and Aspirin at this time - telemetry - c/w Plavix and ASA daily - c/w Ranexa HLD - c/w Atorvastatin daily DVT prophylaxis - SCDs/MARIBELL hose Discharge Planning Discharge patient to home Condition on discharge: Improved Healthy heart high-fiber Diet as tolerated Ad Mary activity Rx written: Protonix, aspirin Plavix Follow-up with primary care physician and GI as directed Ori Nick MD Dec 15, 2016 14:52
[2016-12-15] MEDS ORDERED: PETROLEUM/SHARK LIVER OIL 60 GM TUBE RECTAL PRN (15:00)
--- NOTE | 2016-12-15 15:01 | HHI.DS ---
Discharge Summary Admission Date Dec 13, 2016 at 16:28 Discharge Date: Dec 15, 2016 Admitting Diagnosis GI bleed. (1) CAD (coronary artery disease) ICD Code: I25.10 (2) GI (gastrointestinal bleed) ICD Code: K92.2 (3) Anemia ICD Code: D64.9 Procedures EGD and colonoscopy Brief History - From Admission 71 yo male with PMHX of anemia, CAD s/p previous PCI/with 6 stent implantations on Plavix and ASA, HLD, Vitiligo, bradycardia, FLAVIA CPAP noncompliant, GERD, hemorrhoids and h/o previous GIB one year ago requiring a transfusion of 2u PRBCs presents to [facility] with complaints of rectal bleeding with associated fatigue x 2 days. He reports some exertional dyspnea that has been ongoing since his last cardiac stent placement in September. Patient has witnessed maroon and black stools as well as bright red blood. At the time of his GIB last year, patient underwent a colonoscopy by Dr. Roa which was negative per patient report and he was told to have repeat colonoscopy in 10 yrs. The patient states the bleeding is similar to what he experienced one year ago leading to his previous admission and transfusion. Patient denies any complaints of chest pain or abdominal pain. He does admit to some diarrhea with the bleeding but denies any fever or chills. In the ED, patients hemoglobin is 11.5 and hematocrit 32.1. Rectal exam done in ED revealed maroon looking stool per rectum and Hemoccult positive. ED physician Dr. Coleman discussed with patients octave board racker Dr. Chanel who has stated patient is to remain on his home medications of Plavix and Aspirin at this time. CBC/BMP: 12/15/16 0904 12/14/16 0308 Significant Findings Laboratory Tests Test 12/13/16 12/13/16 12/14/16 12/14/16 14:55 19:56 03:08 09:40 Red Blood Count 3.44 MIL/MM3 3.15 MIL/MM3 (4.50-5.90) (4.50-5.90) Hemoglobin 11.5 GM/DL 9.9 GM/DL 10.2 GM/DL 10.4 GM/DL (13.0-17.0) (13.0-17.0) (13.0-17.0) (13.0-17.0) Hematocrit 32.1 % 28.2 % 29.0 % 30.6 % (39.0-51.0) (39.0-51.0) (39.0-51.0) (39.0-51.0) Monocytes (%) (Auto) 11.1 % 13.7 % (0.0-8.0) (0.0-8.0) Blood Urea Nitrogen 22 MG/DL (7-18) Estimat Glomerular Filtration 68 ML/MIN (>89) 74 ML/MIN (>89) Rate Chloride Level 111 MEQ/L (98-107) Calcium Level 8.3 MG/DL (8.5-10.1) Test 12/14/16 12/14/16 12/15/16 14:03 20:55 09:04 Hemoglobin 9.9 GM/DL 10.1 GM/DL 10.7 GM/DL (13.0-17.0) (13.0-17.0) (13.0-17.0) Hematocrit 28.1 % 28.6 % 30.1 % (39.0-51.0) (39.0-51.0) (39.0-51.0) White Blood Count 3.9 TH/MM3 (4.0-11.0) Red Blood Count 3.24 MIL/MM3 (4.50-5.90) Platelet Count 146 TH/MM3 (150-450) Monocytes (%) (Auto) 11.9 % (0.0-8.0) PE at Discharge GENERAL: This is a well-nourished, well-developed patient, in no apparent distress. SKIN: No rashes, warm and dry HEAD: Atraumatic. Normocephalic. EYES: Pupils equal round and reactive. Extraocular motions intact. No scleral icterus. ENT: Nose without bleeding, or drainage, Airway patent. NECK: Trachea midline. Supple CARDIOVASCULAR: Regular rate and rhythm without murmurs, gallops, or rubs. RESPIRATORY: Fair air entry bilaterally. No wheezes, rales, or rhonchi. GASTROINTESTINAL: Abdomen soft, non-tender, nondistended. Positive bowel sounds MUSCULOSKELETAL: Extremities without clubbing, cyanosis, or edema. Pedal pulses appreciated NEUROLOGICAL: Awake and alert. Moves all extremity. Normal speech.no focal neurological deficit Hospital Course 71 yo male with PMHX of anemia, CAD s/p previous PCI/with 6 stent implantations on Plavix and ASA, HLD, Vitiligo, bradycardia, FLAVIA CPAP noncompliant, GERD, hemorrhoids and h/o previous GIB requiring a transfusion of 2u PRBCs admitted to [facility] with complaints of rectal bleeding with associated fatigue x 2 days. Rectal GI bleed,suspected lower GIB,,H/O hemorrhoids Admit to inpatient on telemetry,patient is hemodynamically stable, GI consulted s/p EGD and colonoscopy showed mild gastritis and duodenitis, colonoscopy showed few diverticulosis, questionable small anal fissure and small internal hemorrhoids, no sign of bleed. ,serial H/H q 6hs IV PPI BID,NPO,IVF,Fall precautions pt had CAD with history of previous PCI/stents ,c/w Plavix and ASA daily ,c/w Ranexa Cleared by Dr. ace and be discharged home to follow up as an outpatient for possible camera capsule test Pt Condition on Discharge: Good Discharge Disposition: Discharge Home Discharge Time: <= 30 minutes Discharge Instructions DIET: Follow Instructions for: Diabetic Diet Additional Diet Instructions: High-fiber, avoid straining when moving bowel Activities you can perform: Weight Bearing as Franky Follow up Referrals: Gastroenterology - 2 Weeks with Margo Amos MD New Medications: Pantoprazole (Protonix) 40 Mg Tab 40 MG PO DAILY Ulcer Prevention #30 [address] (Aspirin EC) 81 Mg Tabdr 81 MG PO DAILY cad #30 TAB Continued Medications: Atorvastatin (Atorvastatin) 80 Mg Tab 80 MG PO HS Cholesterol Management #30 Ref 0 TAB Calcium Carbonate-Cholecalciferol (Calcium 600 with Vitamin D) 600-400 mg-Unit Tab 1 TAB PO DAILY Calcium Supplement Ref 0 TAB Clopidogrel (Plavix) 75 Mg Tab 75 MG PO DAILY Blood Clot Prevention #30 Ref 0 TAB Lactobacillus Acidophilus (Probiotic) 1 Cap Cap 1 CAP PO DAILY Nutritional Supplement #90 Ref 0 CAP Multiple Vitamin (Multiple Vitamin) 1 Tab 1 TAB PO DAILY Nutritional Supplement Ref 0 TAB Nitroglycerin SL (Nitrostat SL) 0.4 Mg Subl 0.4 MG SL DIRECTED 1 tablet under the tongue as needed for chest pain. Repeat every 5 minutes for a total of 3 DOSES or call 911 if NO relief. PRN CHEST PAIN #100 Ref 0 TAB.SL Pancrelipase (Creon) 12,000-38,000-60,000 Units Cap 1 CAP PO TIDPC Digestive Aid #90 Ref 0 CAP Ranitidine (Ranitidine) 150 Mg Cap 150 MG PO BID #60 Ref 0 CAP Ranolazine ER 12 HR (Ranexa ER 12 HR) 500 Mg Tab 500 MG PO DAILY Chest Pain #60 Ref 0 TAB Ori Nick MD Dec 15, 2016 15:01
[2016-12-15] MEDS ORDERED: DO NOT ADM ANY ANTICOAGULANT DRUGS XX PRN (15:45)
[2016-12-15 16:11] VITALS: BP 119/63; PULSE 55; RESP 18; TEMP 95.8; O2SAT 100
== END 2016-12-15 19:29 | disposition home or self-care (01) ==
LOC: NEPA 14:38 → NEDA 16:28 → INTOOBSV 16:28 → N05B 18:46
PROVIDERS: ADMIT Hospitalist; ATTEND Hospitalist
DX: I25.10 Atherosclerotic heart disease of native coronary artery without angina pectoris (principal); Z95.5 Presence of coronary angioplasty implant and graft; R14.0 Abdominal distension (gaseous); R06.02 Shortness of breath; K92.2 Gastrointestinal hemorrhage, unspecified; K21.9 Gastro-esophageal reflux disease without esophagitis; I10 Essential (primary) hypertension; E78.5 Hyperlipidemia, unspecified; E78.00 Pure hypercholesterolemia, unspecified; G47.30 Sleep apnea, unspecified; Z79.899 Other long term (current) drug therapy; Z91.19 Patient's noncompliance with other medical treatment and regimen; L80 Vitiligo; R63.4 Abnormal weight loss; R00.1 Bradycardia, unspecified; K64.9 Unspecified hemorrhoids; K64.8 Other hemorrhoids; K57.90 Diverticulosis of intestine, part unspecified, without perforation or abscess without bleeding; K29.70 Gastritis, unspecified, without bleeding; K92.1 Melena; D62 Acute posthemorrhagic anemia; K29.80 Duodenitis without bleeding
CPT/HCPCS: 00740; 00810; 43239; 45378; 80048; 80053; 85014; 85018; 85025; 85610; 85730; 86850; 86900; 86901; 88305; 88312; 96361; 96374; 99285; C9113; G0378; J7030